=== PATIENT | male | born 1985 | race Caucasian/White ===

== ENCOUNTER 2024-03-13 11:58 | Outpatient (OUT) | payer MEDICAID, SELFPAY ==
--- NOTE | 2024-03-13 12:11 | MR_ITS ---
The [address] [address] Patient Name: ELROY JACOBS MRN: [id number] date: 1985 Sex: M Assigned Patient Location: LAB Current Patient Location: LAB Accession/Order Number: [id number] Exam Date: 03/13/2024 12:30 Report Date: 03/13/2024 16:00 At the request of: RENEE SWAIN Procedure: MR cervical spine wo/w con EXAMINATION: MR cervical spine wo/w con HISTORY: muscle weakness M62.81 COMPARISON: No relevant comparison available. TECHNIQUE: A variety of imaging planes and parameters were utilized for visualization of suspected pathology prior to and after intravenous Dotarem injection. FINDINGS: CRANIOCERVICAL AREA: Normal foramen magnum with no Chiari malformation. PARASPINAL AREA: Normal with no visible mass. BONES: Normal alignment with no acute fracture or spondylolisthesis. No bone edema CORD: Normal caliber, contour, and signal intensity. No abnormal postcontrast enhancement CERVICAL DISC LEVELS: C2-C3: No significant disc/facet abnormality, spinal stenosis, or foraminal stenosis. C3-C4: No significant disc/facet abnormality, spinal stenosis, or foraminal stenosis. C4-C5: No significant disc/facet abnormality, spinal stenosis, or foraminal stenosis. C5-C6: No significant disc/facet abnormality, spinal stenosis, or foraminal stenosis. C6-C7: No significant disc/facet abnormality, spinal stenosis, or foraminal stenosis. C7-T1:. No significant disc/facet abnormality, spinal stenosis, or foraminal stenosis. MR/MR cervical spine wo/w con IMPRESSION: No significant abnormality to account for the patient's muscle weakness Electronically authenticated by: KEVIN SUGGS Date: 03/13/2024 16:00
--- NOTE | 2024-03-13 12:15 | MR_ITS ---
The [address] [address] Patient Name: ELROY JACOBS MRN: [id number] date: 1985 Sex: M Assigned Patient Location: LAB Current Patient Location: LAB Accession/Order Number: [id number] Exam Date: 03/13/2024 12:30 Report Date: 03/13/2024 15:55 At the request of: RENEE SWAIN Procedure: MR lumbar spine wo/w con EXAMINATION: MR lumbar spine wo/w con HISTORY: muscle weakness M62.81 COMPARISON: No relevant comparison available. TECHNIQUE: Axial T1 and T2; Sagittal T1, T2, and STIR sequences. Images were performed before and after the administration of intravenous Dotarem contrast. FINDINGS: For the purposes of numbering, sagittal T2 image # 8 extends from the T11 vertebral body superiorly to the S2-S3 level inferiorly. PARASPINAL AREA: Normal with no visible mass. BONES: Normal alignment with no acute fracture or spondylolisthesis. 10% anterior superior chronic wedge compression fracture of T12 with extension of the intervertebral discs into the superior endplate, Schmorl's node . Signal abnormality in the L4 vertebral body, a hemangioma is favored CORD/CAUDA EQUINA: Normal caliber, contour, and signal intensity. No abnormal enhancement DISC LEVELS: 12-L1: No significant disc/facet abnormality, spinal stenosis, or foraminal stenosis. L1-L2: No significant disc/facet abnormality, spinal stenosis, or foraminal stenosis. L2-L3: No significant disc/facet abnormality, spinal stenosis, or foraminal stenosis. L3-L4: No significant disc/facet abnormality, spinal stenosis, or foraminal stenosis. L4-L5: No disc space narrowing. Mild disc desiccation. Minimal posterior disc protrusion. No central or foraminal stenosis L5-S1: No significant disc/facet abnormality, spinal stenosis, or foraminal stenosis. MR/MR lumbar spine wo/w con IMPRESSION: No significant disc bulge or herniation. No central or foraminal stenosis No abnormal enhancement Minimal discogenic changes L4-L5 Electronically authenticated by: KEVIN SUGGS Date: 03/13/2024 15:55
[2024-03-13 12:16] LABS: Estimated GFR (African America >60 (>=60); Estimated GFR (Non-African Ame >60 (>=60)
== END 2024-03-13 11:59 | disposition home or self-care (01) ==
LOC: LAB 11:58
PROVIDERS: PCP Nurse Practitioner Family; Visit Provider Nurse Practitioner Family
DX: M62.81 Muscle weakness (generalized) (principal); M51.86 Other intervertebral disc disorders, lumbar region
CPT/HCPCS: 36415; 72156; 72158; 82565; 84520; A9575

== ENCOUNTER 2024-05-12 12:28 | Outpatient (OUT) | payer MEDICAID, SELFPAY ==
--- NOTE | 2024-05-12 12:31 | VEIN_ITS ---
The [place] [address] Patient Name: ELROY JACOBS MRN: [id number] date: 1985 Sex: M Assigned Patient Location: Current Patient Location: Accession/Order Number: [id number] Exam Date: 05/12/2024 12:35 Report Date: 05/15/2024 07:27 At the request of: RENEE SWAIN Procedure: VC SEGMENTAL PRESSURES EXAM: VC SEGMENTAL PRESSURES HISTORY: E10.59 , prior resection of the left first toe COMPARISON: None. FINDINGS: Segmental pressures presented as follows (right, left) in mmHg. Brachial: 153, 150 Upper thigh: 212, 241 Lower thigh: 201, 203 Calf: 177, 196 DPA: 178, 176 TRIM STENCIL MAKER: 189, 174 1st Toe: 177, 209 CAROLYN: 1.24, 1.15 TBI: 1.16, 1.37 The ABIs are Normal The TBI's are normal PVR waveforms: Right leg: Thigh: Moderate peripheral arterial disease Above knee: Moderate peripheral arterial disease Below knee: Mild peripheral arterial disease Right ankle: Mild peripheral arterial disease Left leg: Thigh: Moderate peripheral arterial disease Above knee: Moderate peripheral arterial disease Below knee: Mild peripheral arterial disease Right ankle: Mild peripheral arterial disease VEIN/VC SEGMENTAL PRESSURES IMPRESSION: ABIs and TBI's are within normal limits PVR waveform suggests mild to moderate bilateral peripheral arterial disease Electronically authenticated by: KEVIN SUGGS Date: 05/15/2024 07:27
--- NOTE | 2024-05-12 12:31 | VEIN_ITS ---
[address] [address] Patient Name: ELROY JACOBS MRN: [id number] date: 1985 Sex: M Assigned Patient Location: Current Patient Location: Accession/Order Number: [id number] Exam Date: 05/12/2024 12:35 Report Date: 05/15/2024 07:52 At the request of: RENEE SWAIN Procedure: VC EXT Venous NOEL Limited EXAM: VC EXT Venous NOEL Limited HISTORY: L81.9, E10.42 COMPARISON: None. TECHNIQUE: Grayscale, color and Doppler FINDINGS: Region: Bilateral legs Thrombus: None Flow: Normal Augmentation: Normal Compressibility: Normal Other: Mild subcutaneous edema VEIN/VC EXT Venous NOEL Limited IMPRESSION: No deep or superficial vein thrombus identified in the legs Electronically authenticated by: KEVIN SUGGS Date: 05/15/2024 07:52
== END 2024-05-12 12:29 | disposition home or self-care (01) ==
LOC: VC 12:29
PROVIDERS: PCP Nurse Practitioner Family; Visit Provider Nurse Practitioner Family
DX: E10.42 Type 1 diabetes mellitus with diabetic polyneuropathy (principal); L81.9 Disorder of pigmentation, unspecified; E10.59 Type 1 diabetes mellitus with other circulatory complications
CPT/HCPCS: 93923; 93970